=== PATIENT | female | born 1950 | race Caucasian/White ===

== ENCOUNTER → 2016-08-24 09:03 | Outpatient (CLI) | payer MEDICARE ==
[2011-11-23 06:15] VITALS: BMI 45.3
== END ==
LOC: D.MAMMO 09:03
DX: Z12.31 Encounter for screening mammogram for malignant neoplasm of breast (principal)

== ENCOUNTER → 2016-10-27 12:38 | Outpatient (CLI) | payer MEDICARE ==
[2011-11-23 06:15] VITALS: BMI 45.3
== END | disposition home or self-care (01) ==
LOC: D.US 12:38
DX: R09.89 Other specified symptoms and signs involving the circulatory and respiratory systems (principal)

== ENCOUNTER 2016-11-22 10:16 | Emergency (ER) | payer MEDICARE ==
[2011-11-23 06:15] VITALS: BMI 45.3
== END 2016-11-22 11:40 | disposition home or self-care (01) ==
LOC: D.ER 10:16
DX: H10.31 Unspecified acute conjunctivitis, right eye (principal); I10 Essential (primary) hypertension

== ENCOUNTER → 2017-04-27 07:49 | Outpatient (CLI) | payer MEDICARE ==
[~2017-04-27] VITALS: Ht 167.6 cm; Wt 120.0 kg
--- NOTE | ~2017-04-27 | HEMODYNAMI ---
PATIENT:STACIE SPARKS MEDICAL RECORD: [id number] : 46 LOCATION:[facility] ADMISSION DATE: 04/27/17 Generatedon:04/27/201711:47 Patient name: STACIE SPARKS Patient #: [id number] SSN: : 1950 Date of study: 04/27/2017 Page: Of Hemodynamic Procedure Report Patient Data Patient Demographics Procedure consent was obtained First Name: STACIE Gender: Female Last Name: CLARE : 1950 [facility] Initial: J Age: 66 year(s) Patient #: [id number] Race: Unknown Additional ID: [id number] Contact details Address: [address] [place] [address] [facility] State: [place] City: [place] Zip code: [address] Past Medical History Allergies: No known allergies Admission Admission Data Admission Date: 04/27/2017 Admission Time: 7:49 Height (in.): 68 BSA: 2.32 (m2) Height (cm.): 172.72 BMI: 41.05 (kg/m2) Weight (lbs.): 270 Weight (kg.): 122.47 Lab Results Lab Result Date: 04/27/2017 Lab Result Time: 0:00 Biochemistry Name Units Result Min Max BUN mg/dl 14 --(--*-)-- 7 18 Creatinine mg/dl 0.7 --(*---)-- 0.6 1.3 CBC Name Units Result Min Max Hemoglobin g/dl 16.1 --(--*-)-- 13.5 17.5 Procedure Procedure Types Cath Procedure Diagnostic Procedure LHC LHC w/Coronaries FFR/IVUS Intra-Coronary IVUS Initial PCI Procedure Coronary Stent Miscellaneous Procedures Moderate Sedation up to 15 minutes Peripheral Cath Diagnostic Procedure Cath Peripheral Makbt-Bmdwbxn-Bsx-Off Procedure Description Procedure Date Procedure Date: 04/27/2017 Procedure Start Time: 11:17 Procedure End Time: 11:44 Procedure Staff Name Function Carmine Alvarez MD Performing Physician Allyson NAQVI Monitor Candice Guillen RT Scrub Ethel Monterroso RN Nurse Procedure Data Cath Procedure Fluoroscopy Diagnostic fluoroscopy Total fluoroscopy Time: 973 time: 973 min min Diagnostic fluoroscopy Total fluoroscopy dose: 5.2 dose: 5.2 mGy mGy Contrast Material Contrast Material Type Amount (ml) Isovue 300 132 Entry Location Entry Primary Successful Side Size Upsize Upsize Entry Closure Succes sful Closure Location (Fr) 1 (Fr) 2 (Fr) Remarks Device Remarks Femoral Right 5 Fr 6 Fr Exoseal artery Short Estimated blood loss: 10 ml Diagnostic catheters Device Type Used For End Catheter Placement MULTIPACK Pigtail 5 Fr Procedure catheter MULTIPACK JL 4.0 5Fr Procedure catheter MULTIPACK 3DRC 5Fr Procedure catheter Procedure Complications No complications Procedure Medications Medication Administration Route Dosage 0.9% NaCl I.V. 100 ml/hr Oxygen NC 2 l/min Lidocaine 2% added to field 20 Heparin Flush Bag added to field 2 bags (1000units/500ml NS) Fentanyl I.V. 100 mcg Versed I.V. 1 mg Fentanyl I.V. 50 mcg Versed I.V. 1 mg Fentanyl I.V. 50 mcg Heparin Bolus I.V. 5000 units Integrilin (Bolus I.V. 10.7 ml 2mg/ml) Plavix P.O. 600 mg Hemodynamics Rest BSA: 2.32 (m2) O2 Consumption: Estimated: 315.52 (ml/min) O2 Consumption indexed : Estimated:136 (ml/min/m) Pre Cath Intra NCS Post Cath Vital Signs Time Heart Resp SPO2 etCO2 NIBP (mmHg) Rhythm Pain Sedation Rate (ipm) (%) (mmHg) Status Level (bpm) 10:53:44 97 19 98 31.9 162/93(115) NSR 0 (11) 10(A) , No pain 10:58:17 92 15 96 40.2 167/91(124) NSR 0 (11) 10(A) , No pain 11:02:53 97 20 99 0 140/99(121) NSR 0 (11) 10(A) , No pain 11:07:24 84 19 99 17.4 139/79(112) NSR 0 (11) 10(A) , No pain 11:11:52 84 21 94 0 132/84(107) NSR 0 (11) 10(A) , No pain 11:16:20 97 20 97 33.4 130/82(104) NSR 0 (11) 10(A) , No pain 11:20:47 89 16 98 22 142/83(113) NSR 0 (11) 9(A) , No pain 11:25:21 76 17 96 21.2 139/79(98) NSR 0 (11) 9(A) , No pain 11:29:56 69 17 94 26.5 150/78(107) NSR 0 (11) 9(A) , No pain 11:34:24 84 16 98 7.5 127/78(112) NSR 0 (11) 10(A) , No pain 11:38:48 89 15 97 31.8 144/88(124) NSR 0 (11) 10(A) , No pain 11:43:17 98 26 97 25.7 151/96(118) NSR 0 (11) 10(A) , No pain Medications Time Medication Route Dose Verified Delivered Reason Not es Effectiveness by by 10:51:45 0.9% NaCl I.V. 100ml/hr Carmine Ethel used for Kim Monterroso RN procedure 10:51:53 Oxygen NC 2 l/min Carminegisele Davenport Per physician Kim Monterroso RN 10:52:02 Lidocaine 2% added 20ml Carmine Carmine used for to vial Kim Alvarez MD procedure field 10:52:09 Heparin Flush added 2 bags Carmine Carmine for local Bag to Kim Alvarez MD anesthetic (1000units/500ml field NS) 11:17:11 Fentanyl I.V. 100 mcg Carmine Davenport for sedation Kim Monterroso RN 11:17:19 Versed I.V. 1 mg Carmine Carrfany for sedation Kim Monterroso RN 11:20:34 Fentanyl I.V. 50 mcg Carmine Ethel for sedation Kim Monterroso RN 11:20:43 Versed I.V. 1 mg Carmine Carrfany for sedation Kim Monterroso RN 11:23:18 Fentanyl I.V. 50 mcg Carmine Ethel for sedation Kim Monterroso RN 11:28:29 Heparin Bolus I.V. 5000 Carmine Ethel for lien ified units Kim Monterroso RN anticoagulation by 11:28:58 Integrilin I.V. 10.7ml Carmine boyer was te (Bolus 2mg/ml) Kim Monterroso RN antiplatelet 9.3ML therapy 11:35:50 Plavix P.O. 600 mg Carmine Monterroso RN antiplatelet therapy Procedure Log Time Note 10:42:42 Patient Height : 68 inches 10:42:48 Patient Weight : 270 lbs 10:45:36 Lab Result : Hemoglobin 16.1 g/dl 10:45:36 Lab Result : Creatinine 0.7 mg/dl 10:45:36 Lab Result : BUN 14 mg/dl 10:46:26 Diagnostic Cath status Elective 10:46:32 Candice Guillen RT(R) sent for patient. Start room use. 10:46:33 Time tracking: Regular hours 10:46:38 Plan of Care:Hemodynamics will remain stable., Cardiac rhythm will remain stable., Comfort level will be maintained., Respiratory function will remain adequate., Patient/ family verbilizes understanding of procedure., Procedure tolerated without complication., Recovers from procedure without complications.. 10:47:12 Patient received from Pre/Post Procedure Room to CCL 2 Alert and oriented. Tansferred to table in Supine position. 10:47:15 Warm blankets applied, and kristy hugger turned on for patient comfort. 10:48:01 Correct patient and procedure confirmed by team. 10:48:04 Signed procedure consent form obtained from patient. 10:48:56 H&P Date Dictated: 04/07/2017 Within 30 days and on chart., H&P Addendum completed by physician on day of procedure. (MUST COMPLETE FOR ALL OUTPATIENTS). 10:48:57 Pre-procedure instructions explained to patient. 10:49:00 Family in waiting room. 10:49:15 Patient NPO since Midnight. 10:49:27 Patient allergic to No known allergies 10:49:31 Is the patient allergic to Iodine/contrast media? No. 10:49:49 Was the patient premedicated? Yes 10:49:55 Snore? Yes 10:50:00 Dentures? Yes ? 10:50:03 Is patient on blood thinner?Yes 10:50:12 ACC The patient was administered the following blood thiners within the last 24 hours: Eliquis 10:50:17 Patient diabetic? No. 10:50:21 Sleep apnea? No 10:50:24 Sticks out tongue? Yes 10:50:29 Patient pain scale 0/10 ?. 10:50:35 IV patent on arrival in left hand with 0.9% NaCl at [facility]. 10:50:44 Lab results completed and on chart. 10:51:13 Right Radial & Right Groin area was prepped with chlora-prep and draped in sterile fashion 10:51:14 Alarms reviewed by R. N. 10:51:15 Sharps counted by scrub and verified by R.N. 10:51:17 Physician paged 10:51:45 0.9% NaCl 100ml/hr I.V. was administered by Ethel Monterroso RN; used for procedure; 10:51:53 Oxygen 2 l/min NC was administered by Ethel Monterroso RN; Per physician; 10:52:02 Lidocaine 2% 20ml vial added to field was administered by Carmine Alvarez MD; used for procedure; 10:52:09 Heparin Flush Bag (1000units/500ml NS) 2 bags added to field was administered by Carmine Alvarez MD; for local anesthetic; 10:52:16 Vital chart was started 11:15:12 Physician arrived 11:15:13 --------ALL STOP TIME OUT------ 11:15:13 Final Timeout: patient, procedure, and site verified with staff and physician. All members of the team are in agreement. 11:15:21 Right Radial & Right Groin site verified by team. 11:16:11 Sedation plan: IV Moderate Sedation Medication:Versed, Fentanyl 11:16:19 Use device set Femoral Dx 11:16:23 Procedure started. 11:16:24 Full Disclosure recording started 11:16:36 Zero performed for pressure channel P1 11:16:41 Zero performed for pressure channel P1 11:16:48 ACIST Syringe (07912) opened to sterile field. 11:16:49 Bag Decanter (2002S) opened to sterile field. 11:16:49 Medline Cath Pack ([id number]) opened to sterile field. 11:16:50 SHEATH 5FR Zearing (PXE620) opened to sterile field. 11:16:51 DIAGNOSTIC WIRE .035 260cm J wire (168983) opened to sterile field. 11:16:52 ACIST Hand Control (66251) opened to sterile field. 11:16:52 ACIST Manifold (71230) opened to sterile field. 11:16:53 DIAGNOSTIC Multipack 5Fr catheter set (RV0914) opened to sterile field. 11:16:53 Tegaderm 4 x 4 (1626W) opened to sterile field. 11:16:54 PERCUTANEOUS ENTRY 19GA needle opened to sterile field. 11:17:03 Local anesthetic to right femoral artery with Lidocaine 2% by Carmine Alvarez MD.INITIAL ACCESS ONLY 11:17:11 Fentanyl 100 mcg I.V. was administered by Ethel Monterroso RN; for sedation; 11:17:19 Versed 1 mg I.V. was administered by Ethel Monterroso RN; for sedation; 11:19:57 NEEDLE Merit 18G 9cm Percutaneous Entry ([id number]) opened to sterile field. 11:20:34 Fentanyl 50 mcg I.V. was administered by Ethel Monterroso RN; for sedation; 11:20:43 Versed 1 mg I.V. was administered by Ethel Monterroso RN; for sedation; 11:20:52 A 5 Fr sheath was inserted into the Right Femoral artery 11:21:51 A MULTIPACK Pigtail 5 Fr catheter was advanced over the wire and used for Procedure. 11:21:55 LV angiography performed. 11:22:01 EF : 60 % 11:22:29 Abdominal angiogram w/ runoff was performed. 11:22:37 Left leg runoff performed. 11:22:39 Right leg runoff performed. 11:22:45 Catheter removed. 11:22:53 A MULTIPACK JL 4.0 5Fr catheter was advanced over the wire and used for Procedure. 11:23:18 Fentanyl 50 mcg I.V. was administered by Ethel Monterroso RN; for sedation; 11:23:27 LCA angiography performed. 11:24:46 Catheter removed. 11:24:54 A MULTIPACK 3DRC 5Fr catheter was advanced over the wire and used for Procedure. 11:26:40 SHEATH 6FR Zearing (PZB243) opened to sterile field. 11:26:41 Willis [place]agley[place] IVUS Catheter (50024E) opened to sterile field. 11:26:53 RCA angiography performed. 11:26:55 Catheter removed. 11:27:15 Sheath upsized to a 6 Fr Short. 11:28:04 GUIDE 6FR HS II catheter (DM6OSCZ) opened to sterile field. 11:28:15 6 Fr HS2 guide catheter was inserted over the wire 11::28 choice pt ex wire advanced. 11:28:29 Heparin Bolus 5000 units I.V. was administered by Ethel Monterroso RN; for anticoagulation; verified by 11:28:58 Integrilin (Bolus 2mg/ml) 10.7ml I.V. was administered by Ethel Monterroso RN; for antiplatelet therapy; waste 9.3ML 11:29:03 Wire advanced across lesion. 11:29:34 IVUS catheter advanced over wire. 11:32:36 IVUS catheter removed over wire. 11:33:53 Inflation Number: 1 A INTEGRITY OTW 3.5 X 30 stent ([id number]) was prepped and advanced across the Prox RCA. The stent was deployed at 17 SJ for 0:10 (min:sec). 11:34:17 EXOSEAL 6Fr (EX600) opened to sterile field. 11:34:42 Wire removed. 11:34:43 Guide catheter removed. 11:34:54 Sheath removed intact; hemostasis achieved with Exoseal to the Right Femoral artery. 11:34:57 Procedure ended.(Physican Out) 11:35:50 Plavix 600 mg P.O. was administered by Ethel Monterroso RN; for antiplatelet therapy; 11:37:22 Fluoroscopy time 973.00 minutes. 11:37:29 Fluoroscopy dose: 5.2 mGy 11:37:29 Flurop Dose total: 5.2 11:37:35 Contrast amount:Isovue 300 132ml. 11:37:36 Sharps counted by scrub and verified by R.N. 11:37:39 Insertion/operative site no bleeding no hematoma. 11:37:43 Post right femoral artery:stable 11:37:46 Post Procedure Pulses reassessed and unchanged 11:37:50 Post-procedure physical assessment completed. ASA score P 2 - A patient with mild systemic disease as per Carmine Alvarez MD. 11:38:04 Post procedure rhythm: unchanged. 11:38:08 Estimated blood loss: 10 ml 11:42:05 Post procedure instruction explained to patient.Patient verbalizes understanding. 11:43:13 Procedure type changed to Cath procedure, Diagnostic procedure, LHC, LHC w/Coronaries, FFR/IVUS, Intra-Coronary IVUS Initial, PCI procedure, Coronary Stent, Miscellaneous Procedures, Moderate Sedation up to 15 minutes, Peripheral Cath Diagnostic Procedure, Cath Peripheral, Rbdqn-Jcpgsox-Uex-Off 11:43:56 Procedure and supply charges have been captured, reviewed, submitted and are correct. 11:44:06 End room use (Document Last) 11:44:07 Procedure Complication : No complications 11:44:18 FEMSTOP Gold ([id number]) opened to sterile field. 11:44:29 Femstop placed over the right femoral artery at 120 mmHg. Hemostasis achieved. 11:44:36 Report given to Pre/Post Procedure Room. 11:44:40 Patient transfered to Pre/Post Procedure Room with Stretcher. 11:44:43 Procedure ended. 11:44:43 Full Disclosure recording stopped 11:46:40 ACC-PCI Only Patient was given prescriptions, or instructed by Carmine Alvarez MD to start/continue the following medications upon discharge: Plavix 11:47:15 Vital chart was stopped Intervention Summary Intervention Notes Time ActionType Lesion and Equipment Action# Pressure Duration Attributes Used 11:33:53 Place stent Prox RCA INTEGRITY 1 17 00:10 OTW 3.5 X 30 stent ([id number]) Device Usage Item Name Manufacture Quantity Catalog Hospital Part Current Minimal Lot# / Number Charge Number Stock Stock Serial# Code ACIST Acist 1 71152 720443 626312 304444 20 Syringe ApplyKit (28788) Systems Inc Bag Decanter Microtek 1 2001S 909751 36448 837146 5 () Medical Inc. Medline Cath Cardinal 1 [id number] 192844 74593 614394 5 Pack Health ([id number]) SHEATH 5FR Terumo 1 JLF450 567111 645170 586129 40 Zearing (XOB237) DIAGNOSTIC St Gerardo 1 153990 739515 761477 729113 30 WIRE .035 260cm J wire (484951) ACIST Hand Acist 1 75357 605043 026870 461393 5 Control Medical (26167) Systems Inc ACIST Acist 1 80654 349349 983593 760414 5 Manifold Medical (64854) Systems Inc DIAGNOSTIC Cardinal 1 FM6332 450109 33251 045332 30 Multipack Health 5Fr catheter set (RZ1524) Tegaderm 4 x 3M 1 1626W 152170 271136 763106 5 4 (1626W) PERCUTANEOUS Cook Medical 1 F58609 315193 638468 5 ENTRY 19GA needle NEEDLE Merit Merit 1 [id number] 358602 596135 842259 5 18G 9cm Medical Percutaneous Entry ([id number]) MULTIPACK Cardinal 1 801709 5 Pigtail 5 Fr Health catheter MULTIPACK JL Cardinal 1 264851 5 4.0 5Fr Health catheter MULTIPACK Cardinal 1 328677 5 3DRC 5Fr Health catheter SHEATH 6FR Terumo 1 EBZ386 625571 741195 164148 40 Zearing (CLX176) Willis Willis 1 01293S 049407 313880 351711 8 [place]ag[place] IVUS Catheter (26435N) GUIDE 6FR HS Medtronic 1 [id number] 028094 45662 557741 1 II catheter ([id number]) INTEGRITY Medtronic 1 [id number] 346053 830990 7 [id number] OTW 3.5 X 30 stent ([id number]) EXOSEAL 6Fr Cardinal 1 EX600 459622 796380 313025 10 (EX600) Health FEMSTOP Gold [facility] Gerardo 1 Z46436 251859 495822 344051 5 ([id number]) Signature Audit [place] Stage Time Signature Unsigned Intra-Procedure 04/27/2017 Allyson Duron 11:47:12 AM RT(R) Signatures Monitor : Allyson Duron Signature : RT Date : Time : [facility] [address] [facility] [place] [address]
--- NOTE | ~2017-04-27 | OP ---
PATIENT NAME: STACIE SPARKS MEDICAL RECORD: [id number] :46 LOCATION:D.[facility] ADMISSION DATE: SURGEON: NASIM TURPIN MD DATE OF OPERATION: 04/27/2017 DATE OF SERVICE: 04/26/2017 PROCEDURES: 1. PTCA stent RCA. 2. Intravascular ultrasound. 3. Left heart catheterization. 4. Selective coronary angiography. 5. Left ventriculogram. 6. Aortofemoral runoff. 7. Abdominal aortography. INDICATION: Angina, coronary artery disease, leg pain, compatible with claudication. PROCEDURE IN DETAIL: After informed consent was obtained and after detailed explanation of risks, benefits as well as alternative therapies, the patient elected to proceed with angiogram and angioplasty. The right femoral area was prepped and draped in normal sterile fashion. The right femoral artery was cannulated via modified Seldinger technique with placement of 6-Iraqi sheath. All catheters exchanged through this sheath. FINDINGS: Left ventriculogram was performed in standard 30-degree JENSEN view, reveals good cardiac wall motion throughout all segments. Overall ejection fraction estimated at 60%. SELECTIVE CORONARY ANGIOGRAPHY: 1. Left main showed no significant angiographic disease. 2. Left anterior descending has kpuh-le-jjpebrjo irregularities, but no flow-limiting stenosis. 3. The left circumflex has xpkq-uc-qrkntnai irregularities, but no flow-limiting stenosis. 4. Right coronary has greater than 75% stenosis throughout the entire mid vessel confirmed by intravascular ultrasound. PTCA STENT OF THE RIGHT CORONARY ARTERY: The stent used was a 3.5 x 30 mm Integrity. Result was 0% residual stenosis. OVERALL IMPRESSION: Successful percutaneous transluminal coronary angioplasty stent of the right coronary artery going from greater than 75% initial stenosis to 0% residual stenosis. Aortofemoral runoff was performed. Abdominal aortography was done first. The catheter was pulled down for aortofemoral runoff. Abdominal aortography reveals no significant abdominal aortic disease, no dissection or aneurysm formation. No renal artery stenosis. RIGHT LEG: A. Iliac: The common internal and external iliacs have moderate irregularities, but no flow-limiting stenosis. B. Femoral system: The common, superficial, and deep femoral have moderate OPERATIVE REPORT [id number] STACIE SPARKS irregularities, but no flow-limiting stenosis. C. Popliteal and infrapopliteal vessels are widely patent with good 3-vessel runoff to the foot. LEFT LEG: A. Iliac: The common internal and external iliacs have moderate irregularities, but no flow-limiting stenosis. B. Femoral system: The common, superficial, and deep femoral have moderate irregularities, but no flow-limiting stenosis. C. Popliteal and infrapopliteal vessels are widely patent with good 3-vessel runoff to the foot. OVERALL IMPRESSION: No significant peripheral vascular disease is present. Leg pain is non-arterial vascular in etiology. TRANSINT:[id number] Voice Confirmation ID: [id number] DOCUMENT ID: [id number] NASIM TURPIN MD CC: [id number] DICTATION DATE: 04/27/17 113 QUALITY SYSTEMS ENGINEER: 04/27/17 1329 [facility] [address] [place] [id number]
[~2017-04-27 07:49] MED LIST: BAYER CHEWABLE81 MG PO; ELIQUIS5 MG PO; MAXZIDE 75/501 TAB PO; PLAVIX75 MG PO; TOPROL XL100 MG PO
[2017-04-27 08:58] VITALS: BP 151/86; Ht 167.6 cm; Wt 120.0 kg
[2017-04-27 09:15] LABS: BASOPHILS 0.5 % (0-2); EOSINOPHILS 0.6 % (0-7); HEMATOCRIT 47.6 % (36.0-48.0); HEMOGLOBIN 16.1 g/dL (12-16); IMMATURE GRANULOCYTES 0.6 % (0-5); LYMPHOCYTES 29.8 % (15-50); MCH 32.1 pg (26.0-34.0); MCHC 33.8 g/dL (31.0-37.0); MCV 94.8 fL (80.0-100.0); MEAN PLATELET VOLUME 9.9 fL (7.4-10.4); MONOCYTES 8.1 % (2-11); NEUTROPHILS 60.4 % (40-80); RBC 5.02 10x6/uL (4.00-5.40); RDW 11.7 % (11.5-14.5); WBC 10.9 10x3/uL (4.8-10.8)
[2017-04-27 09:24] LABS: CALC OSMOLALITY 276 mosm/kg (275-300); CALCIUM 10.6 mg/dL (8.5-10.1); CARBON DIOXIDE 29.5 mmol/L (21.0-32.0); CHLORIDE - SERUM 100 mmol/L (98-107); CREATININE - SERUM 0.7 mg/dL (0.6-1.3); GLUCOSE 99 mg/dL (74-106); SODIUM 138 mmol/L (136-145); UREA NITROGEN 14 mg/dL (7-18); eGFR NON AFRICAN AMERICAN 88 mL/min (90-120)
[2017-04-27 09:33] LABS: PLATELET COUNT 273 10x3/uL (130-400)
== END | disposition home or self-care (01) ==
LOC: D.CATH 07:49
PROVIDERS: Internal Medicine Interventional Cardiology
DX: I25.119 Atherosclerotic heart disease of native coronary artery with unspecified angina pectoris (principal); M79.606 Pain in leg, unspecified; Z01.812 Encounter for preprocedural laboratory examination

== ENCOUNTER → 2017-11-05 21:14 | Outpatient (CLI) | payer MEDICARE ==
[2017-04-27 08:58] VITALS: BMI 42.7
== END | disposition home or self-care (01) ==
LOC: D.MAMMO 13:30
DX: Z12.31 Encounter for screening mammogram for malignant neoplasm of breast (principal)

== ENCOUNTER 2019-01-30 10:05 | Outpatient (CLI) | payer MEDICARE ==
[~2019-01-30] VITALS: Ht 165.1 cm; Wt 120.5 kg
--- NOTE | ~2019-01-30 | HEMODYNAMI ---
PATIENT:STACIE SPARKS MEDICAL RECORD: [id number] : 46 LOCATION:[facility] ADMISSION DATE: 01/30/19 Generatedon:01/30/201912:50 Patient name: STACIE SPARKS Patient #: [id number] SSN: : 1950 Date of study: 01/30/2019 Page: Of Hemodynamic Procedure Report Patient Data Patient Demographics Procedure consent was obtained First Name: STACIE Gender: Female Last Name: CLARE : 1950 [facility] Initial: J Age: 68 year(s) Patient #: [id number] Race: Unknown Additional ID: [id number] Contact details Address: [address] [place] [address] [facility] State: [place] City: [place] Zip code: [address] Past Medical History Allergies: No known allergies Admission Admission Data Admission Date: 01/30/2019 Admission Time: 10:05 Arrival Date: 01/30/2019 Arrival Time: 12:00 Admit Source: Other Insurance Payor: Private health insurance [facility] #: [id number] Height (in.): 66 BSA: 2.27 (m2) Height (cm.): 167.64 BMI: 43.58 (kg/m2) Weight (lbs.): 270 Weight (kg.): 122.47 Procedure Procedure Types Cath Procedure Diagnostic Procedure Cardioversion External Procedure Description Procedure Date Procedure Date: 01/30/2019 Procedure Start Time: 12:39 Procedure End Time: 12:41 Procedure Staff Name Function Carmine Alvarez MD Performing Physician Candice Guillen RT Monitor Ruthie Colindres RN Nurse Bruno Wood MD Additional personnel Procedure Data Cath Procedure Estimated blood loss: 0 ml Procedure Complications No complications Procedure Medications Medication Administration Route Dosage 0.9% NaCl I.V. 100 ml/hr Oxygen etCO2 Nasal cannula 2 l/min Refer to Anesthesia Notes for Sedation Medications Hemodynamics Rest BSA: 2.27 (m2) O2 Consumption: Estimated: 229.52 (ml/min) O2 Consumption indexed : Estimated:101.11 (ml/min/m) Heart Rate: 94 (bpm) Snapshots Pre Cath Intra NCS Post Cath Vital Signs Time Heart Resp SPO2 etCO2 NIBP (mmHg) Rhythm Pain Sedation Rate (ipm) (%) (mmHg) Status Level (bpm) 12:34:54 69 16 98 38 154/94(129) A-Fib 0 (11) 10(A) , No pain 12:39:43 79 12 100 26.1 148/63(89) NSR 0 (11) 5(A) , No pain 12:43:51 58 24 97 25.4 112/68(95) NSR 0 (11) 5(A) , No pain 12:45:09 71 20 100 24.6 119/65(88) NSR 0 (11) 5(A) , No pain 12:47:14 54 19 100 32.8 136/65(107) NSR 0 (11) 5(A) , No pain Medications Time Medication Route Dose Verified Delivered Reason Notes Effective ness by by 12:36:35 0.9% NaCl I.V. 100 Carmine Hendricks used for ml/hr Kim Colindres business planning director 12:36:45 Oxygen etCO2 2 Carmine Hendricks used for Nasal l/min Kim Colindres procedure cannula RN 12:36:55 Refer to Carmine Hendricks for Anesthesia Kim Colindres sedation Notes for RN Sedation Medications Procedure Log Time Note 12:26:54 Diagnostic Cath Status : Elective 12:27:13 Ruthie Colindres RN sent for patient. Start room use. 12:27:14 Time tracking: Regular hours (M-F 7:00 - 5:00) 12:27:19 Plan of Care:Hemodynamics will remain stable., Cardiac rhythm will remain stable., Comfort level will be maintained., Respiratory function will remain adequate., Patient/ family verbilizes understanding of procedure., Procedure tolerated without complication., Recovers from procedure without complications.. 12:29:35 Admit Source: Other 12:29:38 Arrival Date: 01/30/2019 12:00:00 PM 12:30:07 Insurance Payor : Private health insurance 12:30:31 Patient Weight : 270 lbs 12:30:40 Patient Height : 66 inches 12:30:48 Patient received from Pre/Post Procedure Room to [facility] 3 Alert and oriented. Tansferred to table in Supine position. 12:30:50 Signed procedure consent form obtained from patient. 12:30:51 Warm blankets applied, and kristy hugger turned on for patient comfort. 12:30:52 Correct patient and procedure confirmed by team. 12:30:53 ECG and BP/O2 sat monitors applied to patient. 12:33:19 Baseline sample Acquired. 12:33:19 Vital chart was started 12:33:34 Rhythm: atrial fibrillation 12:33:35 Full Disclosure recording started 12:33:40 H&P Date Dictated: 01/30/2019 Within 30 days and on chart., H&P Addendum completed by physician on day of procedure. (MUST COMPLETE FOR ALL OUTPATIENTS). 12:33:41 Pre-procedure instructions explained to patient. 12:33:42 Pre-op teaching completed and patient verbalized understanding. 12:33:49 Family in patients room. 12:33:51 Patient NPO since Midnight. 12:33:55 Is the patient allergic to Iodine/contrast media? No. 12:33:56 Was the patient premedicated? No 12:34:07 Patient diabetic? No. 12:34:09 Previous problem with sedation/anesthesia? No ? 12:34:10 Snore? Yes 12:34:12 Sleep apnea? No 12:34:12 Deviated septum? No 12:34:13 Opens mouth fully? Yes 12:34:15 Sticks out tongue? Yes 12:34:20 Airway obstruction? No ? 12:34:23 Dentures? No ? 12:34:29 Patient pain scale 0/10 ?. 12:34:39 IV patent on arrival in right wrist with 0.9% NaCl at [facility]. 12:34:42 Lab results completed and on chart. 12:35:13 Alarms reviewed by R. N. 12:35:14 Sharps counted by scrub and verified by R.N. 12:36:35 0.9% NaCl 100 ml/hr I.V. was administered by Ruthie Colindres RN; used for procedure; Verbal order read back and verified. 12:36:45 Oxygen 2 l/min etCO2 Nasal cannula was administered by Ruthie Colindres RN; used for procedure; Verbal order read back and verified. 12:36:50 Physician arrived 12:36:51 --------ALL STOP TIME OUT------ 12:36:51 Final Timeout: patient, procedure, and site verified with staff and physician. All members of the team are in agreement. 12:36:55 Refer to Anesthesia Notes for Sedation Medications was administered by Ruthie Colindres RN; for sedation; Verbal order read back and verified. 12:36:58 Physical assessment completed. ASA score P 2 - A patient with mild systemic disease as per Carmine Alvarez MD. 12:37:10 Sedation plan: TIVA Medication:Propofol 12:37:17 Quick combo pads placed on patients chest and back. 12:37:20 Defibrillator synced and charged to 275 Joules. 12:37:42 Bruno Wood MD present and monitoring patient for TIVA. 12:39:18 Procedure started. 12:40:00 Shock delivered. 12:40:11 Patient cardioverted to sinus rhythm . 12:40:16 Procedure ended.(Physican Out) 12:40:39 Sharps counted by scrub and verified by R.N. 12:40:47 Post Procedure Pulses reassessed and unchanged 12:40:50 Post procedure rhythm: sinus rhythm 12:40:53 Estimated blood loss: 0 ml 12:40:54 Post procedure instruction explained to patient.Patient verbalizes understanding. 12:40:55 Patient needs reinforcement of post procedure teaching. 12:41:02 Procedure and supply charges have been captured, reviewed, submitted and are correct. 12:41:07 Procedure Complication : No complications 12:41:09 Vital chart was stopped 12:41:12 Operative report dictated upon procedure completion. 12:41:13 See physician's report for complete and final results. 12:41:24 Report given to Pre/Post Procedure Room. 12:41:27 Patient transfered to Pre/Post Procedure Room with Stretcher. 12:41:29 Procedure ended. 12:41:29 Full Disclosure recording stopped 12:41:35 End room use (Document Last) Signature Audit [place] Stage Time Signature Unsigned Intra-Procedure 01/30/2019 Candice Guillen 12:49:03 PM RT(R) Intra-Procedure 01/30/2019 Ruthie Colindres 12:49:41 PM RN Intra-Procedure 01/30/2019 Carmine Alvarez 12:50:05 PM [id number] [place] [address]
[2019-01-30] MEDS ORDERED: XARELTO20 MG PO (10:25)
[2019-01-30] MEDS ORDERED: SORINE80 MG PO (10:26)
[2019-01-30] MEDS ORDERED: MULTI-DAY VITAM1 TAB PO (10:26)
[2019-01-30 10:35] VITALS: BP 149/83; Ht 165.1 cm; Wt 120.5 kg
[2019-01-30 11:02] LABS: BASOPHILS 0.4 % (0-2); EOSINOPHILS 1.6 % (0-7); HEMATOCRIT 45.5 % (36.0-48.0); IMMATURE GRANULOCYTES 0.3 % (0-5); LYMPHOCYTES 30.6 % (15-50); MCH 30.1 pg (26.0-34.0); MCV 91.2 fL (80.0-100.0); MEAN PLATELET VOLUME 9.7 fL (7.4-10.4); MONOCYTES 9.2 % (2-11); NEUTROPHILS 57.9 % (40-80); RBC 4.99 10x6/uL (4.00-5.40); RDW 12.7 % (11.5-14.5); WBC 7.9 10x3/uL (4.8-10.8)
[2019-01-30 11:07] LABS: CALC OSMOLALITY 283 mosm/kg (275-300); CARBON DIOXIDE 30.5 mmol/L (21.0-32.0); CHLORIDE - SERUM 105 mmol/L (98-107); CREATININE - SERUM 0.8 mg/dL (0.6-1.3); GLUCOSE 98 mg/dL (74-106); POTASSIUM - SERUM 3.8 mmol/L (3.5-5.1); SODIUM 142 mmol/L (136-145); UREA NITROGEN 15 mg/dL (7-18); eGFR NON AFRICAN AMERICAN 75 mL/min (90-120)
[2019-01-30 11:10] LABS: PLATELET COUNT 216 10x3/uL (130-400)
[2019-01-30 11:33] LABS: INR 1.59 (0.85-1.17); PROTIME 18.4 SECONDS (11.6-15.0)
--- NOTE | 2019-01-30 12:55 | NUR ---
PT RECEIVED VIA STRETCHER POST SUCCESSFUL CARDIOVERSION. PT AWAKE AND ALERT, DENIES PAIN OR DISCOMFORT. IV PATENT INFUSING VIA ORDERS. PT PLACED ON CARDIAC MONITORS. HR NSR RATE 66, BP 140/74, RR 15, SAT 99 ON ROOM AIR. CALL LIGHT IN REACH.
--- NOTE | 2019-01-30 13:15 | NUR ---
PT SITTING UP DRINKING COFFEE, DENIES PAIN OR NEEDS. HR REMAINS IN NSR RATE 70, BP 115/58. CALL LIGHT IN REACH, AT BEDSIDE.
--- NOTE | 2019-01-30 13:48 | NUR ---
DISCHARGE INSTRUCTIONS REVIEWED W PT AND , BOTH VERBALIZED UNDERSTANDING. IV REMOVED W CATH INTACT. HR REMAINS 68 IN NSR. CARDIAC MONITORS REMOVED AND PT UP TO DRESS FOR DISCHARGE.
--- NOTE | 2019-01-30 13:58 | NUR ---
PT TO BR VIA WC, VOIDING W/O DIFFICULITY. PT THEN DISCHARGED TO PRIVATE VEHICLE VIA WC TO WAITING. PT'S HAD BELONGINGS AND DISCHARGE PAPERWORK.
--- NOTE | 2019-02-06 17:02 | OP ---
PATIENT NAME: STACIE SPARKS MEDICAL RECORD: [id number] :46 LOCATION:[facility] ADMISSION DATE: SURGEON: NASIM TURPIN MD DATE OF OPERATION: 01/30/2019 DATE OF SERVICE: 01/30/2019 PROCEDURE: DC cardioversion. INDICATION: Atrial fibrillation. PROCEDURE IN DETAIL: IV conscious sedation was per anesthesia. Continuous heart rate, O2 saturation, blood pressure monitoring all undertaken, all of which remains stable. She received 1 shock restoring sinus rhythm. OVERALL IMPRESSION: Successful DC cardioversion from atrial fibrillation to sinus rhythm. TRANSINT:[id number] Voice Confirmation ID: [id number] DOCUMENT ID: [id number] NASIM TURPIN MD at 1702 CC: [id number] DICTATION DATE: 01/30/19 1241 JOB TRAINING SPECIALIST: 01/30/19 1247 DEP CLI 01/30/[address] [address]
== END 2019-01-30 13:55 | disposition home or self-care (01) ==
LOC: D.CATH 10:05
PROVIDERS: ATTEND Internal Medicine Interventional Cardiology
DX: I48.91 Unspecified atrial fibrillation (principal)